=== PATIENT | male | born 1990 | race African-American/Black ===

== ENCOUNTER 2017-02-20 16:37 | Emergency (ER) | payer BC ==
[2017-02-20 16:43] VITALS: BP 144/89; PULSE 110; TEMP 99; BMI 20.9
--- NOTE | 2017-02-20 18:07 | PDOC ---
History of Present Illness - General Chief Complaint: Cold Symptoms Stated Complaint: FATIGUE/COUGH Time Seen by Provider: 02/20/17 17:24 History Source: Patient Exam Limitations: No Limitations - History of Present Illness Initial Comments: 02/20/17 19:13 Patient came to emergency department for evaluation of moist but nonproductive cough, chills, fevers, body aches runny nose that started on Thursday. States old symptoms mildly improved with [id number] medications but cough is persistent. [facility] had flu shot this year and no known exposure to anyone ill with same. 02/21/17 09:22 Timing/Duration: reports: week Severity: reports: mild, moderate Associated Symptoms: reports: cough, dizziness, fever/chills, lightheadedness, nasal congestion, sore throat, wheezing Past History - Travel Traveled outside of the country in the last 30 days: No Close contact w/someone who was outside of country & ill: No - Past Medical History Allergies/Adverse Reactions: Allergies Allergy/AdvReac Type Severity Reaction Status Date / Time HORSERADISH AdvReac Hives Uncoded 02/20/17 16:41 Home Medications: Ambulatory Orders Albuterol Sulfate Inhaler - [Ventolin HFA Inhaler -] 1 - 2 inh PO Q4H #1 inhaler 02/20/17 Prednisone [Deltasone -] 20 mg PO BID #8 tablet 02/20/17 Other medical history: denies - Immunization History Immunization Up to Date: Yes - Psycho/Social/Smoking Cessation Hx Anxiety: No Suicidal Ideation: No Smoking Status: No Smoking History: Never smoked Number of Cigarettes Smoked Daily: 0 Information on smoking cessation initiated: No Hx Alcohol Use: No Drug/Substance Use Hx: No Substance Use Type: None Respiratory Specific PMHX - Complaint Specific PMHX Bronchitis: No Pneumonia: No Review of Systems - Review of Systems Able to Perform ROS?: Yes Is the patient limited Kinyarwanda proficient: Yes Constitutional: Yes: Symptoms Reported, See HPI, Fever, Malaise HEENTM: Yes: Symptoms Reported Respiratory: Yes: Symptoms reported, See HPI, Cough, Shortness of Breath, Wheezing ABD/GI: Yes: See HPI. No: Symptoms Reported Integumentary: Yes: Symptoms Reported, See HPI Neurological: Yes: Symptoms reported, See HPI All Other Systems: Reviewed and Negative *Physical Exam - Vital Signs Last Vital Signs Temp Pulse Resp BP Pulse Ox 99 F 110 H 18 144/89 98 02/20/17 16:39 02/20/17 16:39 02/20/17 16:39 02/20/17 16:39 02/20/17 16:39 - Physical Exam General Appearance: Yes: Nourished, Appropriately Dressed, Apparent Distress, Moderate Distress HEENT: positive: KIM, TMs Normal (congested), Muffled/Hoarse voice, Pharyngeal Erythema, Nasal Congestion, Rhinorrhea. negative: Normal ENT Inspection, Pharynx Normal Neck: positive: Supple, Lymphadenopathy (R), Lymphadenopathy (L). negative: Tender Respiratory/Chest: positive: Lungs Clear, Normal Breath Sounds, Rhonchi, Wheezing (no retraction ) Cardiovascular: positive: Regular Rhythm, Regular Rate Gastrointestinal/Abdominal: positive: Soft. 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 Breath sounds much improved after 2 duo nebs and 60 mg of prednisone and will continue albuterol inhaler and prednisone at home. Outside window for treatment with Tamiflu therefore we'll discharge with conservative measures progressed and addition of Medical Decision Making - Medical Decision Making 02/21/17 09:23 Influenza testting POSITVE INFLUENZA B, , patient was notified and testing positive for influenza B, treatment course does not change as his outside window for Tamiflu. will continue Albuterol and Prednisone for 02/21/17 09:24 *DC/Admit/Observation/Transfer Diagnosis at time of Disposition: Influenzal acute upper respiratory infection - Discharge Dispostion Disposition: HOME Condition at time of disposition: Improved Admit: No - Prescriptions Prescriptions: Prednisone [Deltasone -] 20 mg PO BID #8 tablet Albuterol Sulfate Inhaler - [Ventolin HFA Inhaler -] 1 - 2 inh PO Q4H #1 inhaler - Referrals Referrals: Hay Jacobson [Primary Care Provider] - - Patient Instructions Printed Discharge Instructions: DI for Viral Upper Respiratory Infection -- Adult Additional Instructions: Rest, drink lots of fluids: Teas, water, soups, Pedialyte Saltwater gargles Steamy showers/seem to face break up mucus Avoid contact with others until fevers and cough resolved Lots of handwashing and good hygiene Continue [id number] medications for symptomatic relief Tylenol or Motrin for fever and pain Continue prednisone 40 mg daily for the next 4 days Continue albuterol 2 puffs 4 times a day for 3 days then as needed Followup with private physician in one to 2 days as needed Return to emergency department for worsened symptoms, fevers, dehydration - Post Discharge Activity Work/School Note: Back to Work
[2017-02-20] MEDS ORDERED: predniSONE 20 MG TABLET (UD) PO ONE (18:08)
[2017-02-20] MEDS ORDERED: ALBUTEROL SO4 2.5/IPRATROPIUM 0.5 INH SOL 3 ML VIAL.NEB. NEB ONE ×2 (18:08→18:33)
== END 2017-02-20 19:36 | disposition home or self-care (01) ==
LOC: JERFT 16:37
PROC: 3E0F7GC Introduction of Other Therapeutic Substance into Respiratory Tract, Via Natural or Artificial Opening (ICD-10-PCS; principal; 2017-02-20)
DX: J10.1 Influenza due to other identified influenza virus with other respiratory manifestations (principal)
CPT/HCPCS: 87804; 99281-25

== ENCOUNTER 2018-05-26 17:40 | Emergency (ER) | payer SELFPAY ==
--- NOTE | 2018-05-26 17:52 | PDOC ---
Rapid Medical Evaluation Time Seen by Provider: 05/26/18 17:49 Medical Evaluation: Allergies Allergy/AdvReac Type Severity Reaction Status Date / Time HORSERADISH AdvReac Hives Uncoded 02/20/17 16:41 I have performed a brief in-person evaluation of this patient. The patient presents with a chief complaint of: had protected sex Thursday. partner was diagnosed with strep throat yesterday. Patient would like to be tested. Also requesting STD tests because he hasn't been tested in 3 months. patient denies all symptoms. Pertinent physical exam findings: none I have ordered the following: rapid strep, std testing The patient will proceed to the ED for further evaluation. Discharge Disposition - Diagnosis Screening for STDs (sexually transmitted diseases) - Referrals - Patient Instructions - Post Discharge Activity
[2018-05-26 17:57] VITALS: BP 135/85; PULSE 96; TEMP 97.9; BMI 25.0
--- NOTE | 2018-05-26 18:13 | PDOC ---
History of Present Illness - General Chief Complaint: Sore Throat Stated Complaint: SORE THROAT Time Seen by Provider: 05/26/18 17:49 - History of Present Illness Initial Comments: 27-year-old male with past medical history significant for glaucoma presents for evaluation of STD testing and strep throat. He states he had unprotected oral sex with his partner he performed oral sex on his partner and his partner performed oral sex on him, his partner confess to having strep throat. He has no symptoms of sore throat and fever chills or night sweats. He has no urinary symptoms. 05/26/18 18:10 Past History - Past Medical History Allergies/Adverse Reactions: Allergies Allergy/AdvReac Type Severity Reaction Status Date / Time No Known Drug Allergies Allergy Verified 05/26/18 19:25 HORSERADISH AdvReac Hives Uncoded 05/26/18 17:51 Home Medications: Ambulatory Orders Amoxicillin - [Amoxicillin 500mg Capsule -] 500 mg PO BID #20 capsule 05/26/18 COPD: No DVT: No Other medical history: glaucoma - Immunization History Immunization Up to Date: Yes - Suicide/Smoking/Psychosocial Hx Smoking Status: No Smoking History: Never smoked Number of Cigarettes Smoked Daily: 0 Information on smoking cessation initiated: No Hx Alcohol Use: No Drug/Substance Use Hx: No Substance Use Type: None Review of Systems - Review of Systems All Other Systems: Reviewed and Negative *Physical Exam - Vital Signs Last Vital Signs Temp Pulse Resp BP Pulse Ox 97.9 F 96 H 17 135/85 97 05/26/18 17:51 05/26/18 17:51 05/26/18 17:51 05/26/18 17:51 05/26/18 17:51 - Physical Exam Comments: GENERAL: The patient is awake, alert, and fully oriented, in no acute distress. HEAD: Normal with no signs of trauma. EYES: conjunctiva clear. ENT: Ears normal, nares patent, oropharynx clear without exudates. Moist mucous membranes. NECK: Normal range of motion, supple without lymphadenopathy, JVD, or masses. LUNGS: Breath sounds equal, clear to auscultation bilaterally. No wheezes, and no crackles. HEART: Regular rate and rhythm, normal S1 and S2 without murmur, rub or gallop. ABDOMEN: Soft, nontender, normoactive bowel sounds. No guarding, no rebound. No masses. EXTREMITIES: Normal range of motion, no edema. No clubbing or cyanosis. No cords, erythema, or tenderness. NEUROLOGICAL: Cranial nerves II through XII grossly intact. Normal speech, normal gait. PSYCH: Normal mood, normal affect. SKIN: Warm, Dry, normal turgor, no rashes or lesions noted. 05/26/18 18:11 Medical Decision Making - Medical Decision Making STD's testing and strep tests were ordered he is asymptomatic and does not require treatment. 05/26/18 18:12 *DC/Admit/Observation/Transfer Diagnosis at time of Disposition: Screening for STDs (sexually transmitted diseases), Strep pharyngitis - Discharge Dispostion Disposition: HOME Condition at time of disposition: Stable Decision to Admit order: No - Prescriptions Prescriptions: Amoxicillin - [Amoxicillin 500mg Capsule -] 500 mg PO BID #20 capsule - Referrals Referrals: Hay Jacobson [Primary Care Provider] - - Patient Instructions Printed Discharge Instructions: How to Detect and Treat STDs, Facts About Sexually Transmitted Infections, Strep Throat Additional Instructions: Your strep throat test was positive. Please take all the antibiotics as prescribed. We've given you the first dose of antibiotics here in the emergency room this evening so you can wait till tomorrow to start the prescription. Your HIV test was negative. You need to call us back for the results of the syphilis test. As well as a gonorrhea and chlamydia test. Return to the emergency room should he develop any symptoms. You were not treated for gonorrhea or chlamydia or syphilis. - Post Discharge Activity
[2018-05-26] MEDS ORDERED: AMOXICILLIN 500 MG CAPSULE (FP) PO ONE (19:17)
[2018-05-26] MEDS ORDERED: AMOXICILLIN 250 MG CAPSULE ONE (19:20)
== END 2018-05-26 20:10 | disposition home or self-care (01) ==
LOC: JERFT 17:40
DX: J02.0 Streptococcal pharyngitis (principal); B95.0 Streptococcus, group A, as the cause of diseases classified elsewhere; Z11.3 Encounter for screening for infections with a predominantly sexual mode of transmission
CPT/HCPCS: 36415; 86593; 87070; 87077; 87430; 87491; 87591; 99281-25

== ENCOUNTER 2018-07-02 23:31 | Emergency (ER) | payer BC ==
--- NOTE | 2018-07-02 23:45 | PDOC ---
History of Present Illness - General Stated Complaint: PAIN Time Seen by Provider: 07/02/18 23:44 History Source: Patient Exam Limitations: No Limitations - History of Present Illness Initial Comments: 07/03/18 00:04 Mr. Torres is a 28 yo M with a hx of glaucoma who presents to the emergency department with sore throat and concern for HIV infection. He states the sore throat has been present for the past two days and its constant, irritating but not overtly painful, with associative fatigue and chills. He endorses having a headache located in the frontal region without radiation and in the presence of others who had sore throats. He was recently seen in this emergency department and prescribed amoxicillin. Endorses the following: congestion and headache. Denies the following: fever, chest pain, SOB, ear ache, abdominal pain, N/V, diarrhea, hematuria, and dysuria. Mr. Torres also endorses concern of having possible HIV exposure due to unknown status of partners over the past month. 07/03/18 01:03 07/03/18 01:03 07/03/18 04:06 Past History - Past Medical History Allergies/Adverse Reactions: Allergies Allergy/AdvReac Type Severity Reaction Status Date / Time No Known Drug Allergies Allergy Verified 07/02/18 23:55 HORSERADISH AdvReac Hives Uncoded 07/02/18 23:55 Home Medications: Ambulatory Orders Azithromycin [Zithromax Tri-Chepe (3 DAYS) -] 500 mg PO DAILY #3 tablet 07/03/18 COPD: No DVT: No - Immunization History Immunization Up to Date: Yes - Suicide/Smoking/Psychosocial Hx Smoking Status: No Smoking History: Never smoked Number of Cigarettes Smoked Daily: 0 Hx Alcohol Use: No Drug/Substance Use Hx: No Substance Use Type: None Review of Systems - Review of Systems Able to Perform ROS?: Yes Constitutional: No: Chills, Diaphoresis, Fever HEENTM: Yes: Throat Pain. No: Recent change in vision, Ear Pain, Nose Pain, Mouth Pain Respiratory: No: Cough, Shortness of Breath, Hemoptysis Cardiac (ROS): No: Chest Pain, Edema, Palpitations, Syncope, Chest Tightness ABD/GI: No: Constipated, Diarrhea, Nausea, Rectal Bleeding, Vomiting, Tarry Stools : No: Burning, Dysuria, Hematuria Musculoskeletal: No: Back Pain Integumentary: No: Rash Neurological: Yes: Headache. No: Numbness, Paresthesia, Weakness Psychiatric: No: Stressors Endocrine: No: Unexplained Weight Gain Hematologic/Lymphatic: No: Anemia *Physical Exam - Physical Exam General Appearance: Yes: Nourished, Appropriately Dressed HEENT: positive: EOMI, KIM, Other (No exudates noted on pharyngeal exam. Complained of presure with maxillary palpation bilaterally. ) Neck: negative: Lymphadenopathy (R), Lymphadenopathy (L) Respiratory/Chest: positive: Lungs Clear, Normal Breath Sounds Cardiovascular: positive: Regular Rate, S1, S2, Tachycardia Vascular Pulses: Dorsalis-Pedis (R): 3+, Doralis-Pedis (L): 3+ Gastrointestinal/Abdominal: positive: Normal Bowel Sounds. 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 Ddx: immunocompromised sequela 2/2 HIV, sinusitis, viral syndrome, strep, rhinorrhea 2/2 allergies vs infectious etiology Initial vitals: Initial Vital Signs Temp Pulse Resp BP Pulse Ox 99.4 F 116 H 20 123/91 98 07/02/18 23:55 07/02/18 23:55 07/02/18 23:55 07/02/18 23:55 07/02/18 23:55 Work up: Laboratory Tests 07/03/18 00:25 HIV 1&2 Antibody Screen Negative HIV P24 Antigen Negative Microbiology 07/03/18 00:25 Throat Throat Culture - Final NO BETA HEMOLYTIC STREPTOCOCCI ISOLATED 07/03/18 00:25 Throat Group A Strep Rapid Antigen - Final Disposition: Likely has sinusitis. DC to home. no concerns for HIV infection given negative test and no concerns for strep throat given negative culture. *DC/Admit/Observation/Transfer Diagnosis at time of Disposition: Sinusitis Qualifiers: Sinusitis location: other Chronicity: unspecified Qualified Code(s): J32.9 - Chronic sinusitis, unspecified - Discharge Dispostion Disposition: HOME Condition at time of disposition: Fair Decision to Admit order: No - Prescriptions Prescriptions: Azithromycin [Zithromax Tri-Chepe (3 DAYS) -] 500 mg PO DAILY #3 tablet - Referrals Referrals: Merritt Lua MD [Staff Physician] - [facility] [place] [Provider Group] - Patient Instructions Printed Discharge Instructions: DI for Sinusitis Additional Instructions: You have been - Post Discharge Activity
[2018-07-02 23:56] VITALS: BP 123/91; PULSE 116; TEMP 99.4; BMI 25.3
--- NOTE | 2018-07-03 01:10 | PDOC ---
Attending Attestation - HPI HPI: 07/03/18 01:16 The patient is a 28 year old male, with a significant past medical history of glaucoma, who presents to the emergency department with, a sore throat. As per patient, he was recently diagnosed with strep throat 04/2018 where he was prescribed Amoxicillin that he took the entire course of antibiotics. He reports his symptoms are similar to his strep throat diagnosis. He reports to have had recent unprotected oral sexual intercourse and is worried he contracted an STD. He reports a headache today after consuming alcohol and associated subjected fever and chills for "a few days." He denies any recent dizziness. He denies any recent nausea, vomit, diarrhea or constipation. He denies any recent chest pain or shortness of breath. He denies any recent dysuria, frequency, urgency or hematuria. Allergies: NKA Past surgical history: None reported. Social History: Nonsmoker. Denies EtOH use and recreational drug use. - Physicial Exam PE: 07/03/18 01:26 +GENERAL: Warm to touch. Congested. Awake, alert, and fully oriented, in no acute distress HEAD: No signs of trauma ENT: Auricles normal inspection, hearing grossly normal, nares patent, oropharynx clear without exudates. Moist mucosa NECK: Normal ROM, supple, no lymphadenopathy, JVD, or masses LUNGS: Breath sounds equal, clear to auscultation bilaterally. No wheezes, and no crackles +HEART: Tachycardia. Regular rhythm, normal S1 and S2, no murmurs, rubs or gallops ABDOMEN: Soft, nontender, normoactive bowel sounds. No guarding, no rebound. No masses EXTREMITIES: Normal range of motion, no edema. No clubbing or cyanosis. No cords, erythema, or tenderness NEUROLOGICAL: Cranial nerves II through XII grossly intact. Normal speech, normal gait SKIN: Warm, Dry, normal turgor, no rashes or lesions noted. <Avani Cole - Last Filed: 07/03/18 01:42> - Resident Resident Name: Des Torres - ED Attending Attestation I have performed the following: I have examined & evaluated the patient, The case was reviewed & discussed with the resident, I agree w/resident's findings & plan - Medical Decision Making 07/03/18 01:57 HIV negative; pt is tachycardic, and warm to the touch, so we will treat with motrin and we will hydrate, as he has sinusitis/pharyngitis and he has not been eating as much as he usually does. 07/03/18 04:11 Pt will be treated for sinusitis and congestion 07/03/18 20:15 HIV negative and exam improved with hydration. <Jacqueline Ken - Last Filed: 07/03/18 20:17> Attestations - Attestations 07/03/18 01:17 Documentation prepared by Avani Cole, acting as medical office assistant for Jacqueline Ken MD. <Avani Cole - Last Filed: 07/03/18 01:42>
[2018-07-03] MEDS ORDERED: SODIUM CHLORIDE 1,000 ML IV STA (01:17)
[2018-07-03] MEDS ORDERED: PSEUDOEPHEDRINE HCL 60 MG TABLET PO ONE (01:24)
[2018-07-03] MEDS ORDERED: IBUPROFEN 600 MG TABLET (FP) PO ONE ×2 (01:24→01:31)
[2018-07-03] MEDS ORDERED: PSEUDOEPHEDRINE HCL 60 MG TABLET ONE (01:36)
[2018-07-03] MEDS ORDERED: ACETAMINOPHEN 1000 MG/100 ML VIAL (NON FORMULARY) IVPB ONE (03:17)
[2018-07-03] MEDS ORDERED: ACETAMINOPHEN INJECTION 100 ML IVPB ONE (03:31)
[2018-07-03] MEDS ORDERED: AZITHROMYCIN IVPB 500 MG in DEXTROSE 5%-WATER - 250 ML IVPB ONE (03:55)
[2018-07-03] MEDS ORDERED: AZITHROMYCIN IVPB 250 ML IVPB ONE (04:08)
== END 2018-07-03 04:40 | disposition home or self-care (01) ==
LOC: JER 23:31
PROC: 3E03329 Introduction of Other Anti-infective into Peripheral Vein, Percutaneous Approach (ICD-10-PCS; principal; 2018-07-02)
PROC: 3E033NZ Introduction of Analgesics, Hypnotics, Sedatives into Peripheral Vein, Percutaneous Approach (ICD-10-PCS; 2018-07-02)
DX: J32.9 Chronic sinusitis, unspecified (principal); H40.9 Unspecified glaucoma
CPT/HCPCS: 36415; 87070; 87389; 87430; 99281-25; J0131; J7030